=== PATIENT | male | born 1990 | race Caucasian/White ===

== ENCOUNTER → 2024-11-22 07:55 | Outpatient (REF) | payer OTHER, SELFPAY | LOC: RAD 07:55 | PROVIDERS: ATTENDING PHYSICIAN Internal Medicine Cardiovascular Disease; FAMILY PHYSICIAN Family Medicine | DX: E78.49 Other hyperlipidemia (principal); R79.89 Other specified abnormal findings of blood chemistry; R07.9 Chest pain, unspecified; Z68.31 Body mass index [BMI] 31.0-31.9, adult | CPT/HCPCS: 75574; Q9967 ==